=== PATIENT | female | born 1970 | race Caucasian/White ===

== ENCOUNTER 2021-05-03 01:58 | Emergency (ER) | payer BC ==
[~2021-05-03 01:58] MED LIST: CATAPRES 0.1MG0.1 MG PO; COLACE 100MG C100 MG PO; ESCITALOPRAM OX20 MG PO; FENOFIBRATE54 MG PO; FISH OIL 1,0001 EACH PO; IBU800 MG PO; LEVOCETIRIZINE D5 MG PO; LOPRESSOR 25 MG25 MG PO; METFORMIN HCL500 MG PO; NORCO 5-325 TA1 EACH PO; OZEMPIC1 MG/0.75 SQ; ULTRA B-100 CO1 EAC1 PO
[2021-05-03] MEDS ORDERED: PREDNISONE50 MG PO (04:22)
[2021-05-03] MEDS ORDERED: PEPCID20 MG PO (04:22)
[2021-05-03] MEDS ORDERED: BENADRYL 25MG C25 MG PO (04:22)
== END 2021-05-03 04:22 | disposition home or self-care (01) ==
LOC: ER1 01:58
DX: L50.0 Allergic urticaria (principal); I10 Essential (primary) hypertension; Z90.49 Acquired absence of other specified parts of digestive tract
CPT/HCPCS: 96374; 96375; 99283